=== PATIENT | female | born 1980 | race Asian ===

== ENCOUNTER 2020-06-02 18:16 | Emergency (ER) | payer SELFPAY ==
[~2020-06-02] VITALS: Ht 170.2 cm; Wt 83.9 kg
[2020-06-02 18:26] VITALS: Ht 170.2 cm; Wt 83.9 kg
[2020-06-02 20:21] VITALS: BP 142/80
== END 2020-06-02 20:21 | disposition home or self-care (01) ==
LOC: ED 18:16
DX: M26.621 Arthralgia of right temporomandibular joint (principal); G44.209 Tension-type headache, unspecified, not intractable; M72.2 Plantar fascial fibromatosis
CPT/HCPCS: J1885